=== PATIENT | female | born 1980 | race Caucasian/White ===

== ENCOUNTER 2020-09-14 15:38 | Outpatient (RCR) | payer OTHER ==
[~2020-09-14 15:38] MED LIST: CYMBALTA30 MG PO; METHOTREXATE2.5 MG PO; NEURONTIN100 MG PO
== END 2020-09-26 ==
LOC: PT 15:38
PROVIDERS: ATTEND Specialist
DX: M17.12 Unilateral primary osteoarthritis, left knee (principal)